=== PATIENT | male | born 1970 | race Caucasian/White ===

== ENCOUNTER 2017-03-10 20:02 | Emergency (ER) | payer MEDICARE ==
[2017-03-10 20:03] VITALS: BMI 27.9
[2017-03-10 20:26] VITALS: BP 138/91; PULSE 81; RESP 16; TEMP 98; O2SAT 99
[2017-03-10] MEDS ORDERED: TDAP Vaccine 0.5 mL Syr IM ONE (21:06)
--- NOTE | 2017-03-10 21:14 | ED PDOC ---
Arrival/HPI - General Historian: Patient - General Chief Complaint: Abnormal Skin Integrity Time Seen by Provider: 03/10/17 20:57 - History of Present Illness Narrative History of Present Illness (Text): 03/10/17 21:00 47 yo M presents to the emergency room for possible skin infection to the right side of his face. Patient states that on February 18 he had a pimple on the right cheek which he popped, he then saw a highway painter helper for it and was diagnosed with a "cystic eruption," which erupt and have a yellow crusty d/c, and was subsequently treated with a steroid injection locally at the site of the pimple on his right cheek. States that he was then prescribed doxycycline which she took for 14 days. However the symptoms persisted and he developed 2 more lesions in the right side of his face therefore he saw another highway painter helper and was diagnosed with possible impetigo and was advised to continue current antibiotic which she was taking at the time of doxycycline. Patient states that he has ordered to complete the full course of doxycycline, he was also called by the second highway painter helper that he saw and was told that a wound culture showed that he has positive staph aureus but no MRSA. Otherwise reports no headache, fever, chills, ear pain, URI symptoms, neck pain, sore throat. Otherwise has no other complaints. (Michael DORAN,Beulah Miranda) Past Medical History - Provider Review Nursing Documentation Reviewed: Yes - Tetanus Immunization Tetanus Immunization: Unknown - Cardiac Hx Cardiac Disorders: Yes - Pulmonary Hx Respiratory Disorders: No - Neurological Hx Neurological Disorder: No - HEENT Hx HEENT Disorder: No - Renal Hx Renal Disorder: No - Endocrine/Metabolic Hx Endocrine Disorders: No - Hematological/Oncological Hx Blood Disorders: No - Integumentary Hx Dermatological Disorder: No - Musculoskeletal/Rheumatological Hx Musculoskeletal Disorders: No Hx Falls: No - Gastrointestinal Hx Gastroesophageal Reflux: Yes Other/Comment: Arrington's esophagus - Genitourinary/Gynecological Hx Genitourinary Disorders: No - Psychiatric Hx Psychophysiologic Disorder: Yes Hx Depression: Yes Hx Substance Use: No - Surgical History Hx Tonsillectomy: Yes - Anesthesia Hx Anesthesia: No - Suicidal Assessment Feels Threatened In Home Enviroment: No Family/Social History - Physician Review Nursing Documentation Reviewed: Yes Family/Social History: No Known Family HX Smoking Status: Former Smoker Hx Alcohol Use: No Hx Substance Use: No Hx Substance Use Treatment: No Allergies/Home Meds Allergies/Adverse Reactions: Allergies unknown anesthesia Allergy (Uncoded 08/06/16 05:53) RASH Home Medications: Home Meds Medication Instructions Recorded Confirmed Alprazolam [Xanax] 0.5 mg PO PRN PRN 03/10/17 03/10/17 Omeprazole 20 mg PO BID 03/10/17 03/10/17 Paroxetine HCl [Paxil] 40 mg PO DAILY 03/10/17 03/10/17 Review of Systems - Review of Systems Constitutional: Normal. absent: Fatigue, Weight Change, Fevers ENT: Normal. absent: Hearing Changes, Sore Throat, Rhinorrhea, Epistaxis, Sinus Congestion Respiratory: Normal. absent: SOB, Cough Cardiovascular: Normal. absent: Chest Pain, Palpitations, Edema Musculoskeletal: Normal. absent: Arthralgias, Back Pain Skin: Normal, Rash, Skin Lesions. absent: Pruritis Physical Exam - Physical Exam Narrative Physical Exam (Text): 03/10/17 21:00 GENERAL APPEARANCE: Patient is awake, alert, oriented x 3, in no acute distress. SKIN: (+) erythematous healed flat irregular lesion ~1cm to the R cheek with no other lesions noted. Otherwise (-) excoriations, (-) drainage, (-) crusting of lesions is present. HENT: (-) conjunctival injection, (-) chemosis. Oropharynx: clear (-) tongue or lip swelling, (-) tonsillar exudates, (-) erythema. Airway: patent (-) stridor, (-) hoarseness. Mucous membranes moist. Nares: Patent (-) rhinorrhea. NECK: (-) lymphadenopathy, (-) tenderness. CARDIOVASCULAR: Normal rate and rhythm. (-) murmur, (-) gallop. CHEST: (-) rales, (-) wheezing, (-) dyspnea, (-) stridor. Breath sounds equal bilaterally. ABDOMEN: Soft. (-) tenderness, (-) distention, (-) HSM. NEURO: Mental status: Patient is alert, oriented, and with normal strength and tone. (Michael DORAN,Beulah Miranda) Vital Signs Temp Pulse Resp BP Pulse Ox 03/10/17 20:25 98 F 81 16 138/91 H 99 Medical Decision Making ED Course and Treatment: 03/10/17 21:00 47-year-old male presents emergency room for possible impetigo to the right side of his face. Plan : - Tdap IM - Bactroban Patient advised on the likely diagnosis of impetigo. Advised to continue Bactroban as prescribed and to follow up with his highway painter helper in 1-2 days without fail. Return to the emergency room at any time for any new or worsening symptoms. Patient states he fully agrees with and understands discharge instructions. States that he agrees with the plan and disposition. Verbalized and repeated discharge instructions and plan. I have given the patient opportunity to ask any additional questions. (Michael DORAN,Beulah Miranda) - Medication Orders Current Medication Orders: Discontinued Medications Mupirocin (Bactroban Ointment) 1 gm TOP STAT STA Stop: 03/10/17 21:07 Last Admin: 03/10/17 22:20 Dose: Tetanus/Reduced Diphtheria/Acell Pertussis (Boostrix Vaccine Inj) 0.5 ml IM .ONCE ONE Stop: 03/10/17 21:07 Last Admin: 03/10/17 22:12 Dose: 0.5 ml [facility] [place] Immunization Data Document 03/10/17 22:12 CHAVEZ (Rec: 03/10/17 22:13 CHAVEZ [id number]) Immunization Data Vaccine Lot Number [id number] - ADRIANO / SAUSAGE TIER / Resident Statement / has reviewed & agrees with the documentation as recorded. Disposition/Present on Arrival - Present on Arrival Any Indicators Present on Arrival: No History of DVT/PE: No History of Uncontrolled Diabetes: No Urinary Catheter: No History of Decub. Ulcer: No History Surgical Site Infection Following: None - Disposition Have Diagnosis and Disposition been Completed?: Yes Disposition Time: 21:00 Patient Plan: Discharge - Disposition Diagnosis: Impetigo Disposition: HOME/ ROUTINE Condition: STABLE Discharge Instructions (ExitCare): Impetigo (ED) Print Language: MOLDOVAN Additional Instructions: Thank you for letting us take care of you today. You were treated for impetigo. The emergency medical care you received today was directed at your acute symptoms. If you were prescribed any medication, please fill it and take as directed. It may take several days for your symptoms to resolve. Return to the Emergency Department if your symptoms worsen, do not improve, or if you have any other problems. Please contact your skin doctor in 2 days for re-evaluation and follow up. Bring any paperwork you were given at discharge with you along with any medications you are taking to your follow up visit. Our treatment cannot replace ongoing medical care by a primary care provider (PCP) outside of the emergency department. Thank you for allowing the [email or web address] team to be part of your care today. Prescriptions: Mupirocin 2% Cream [Bactroban Cream] 30 applic TOP BID #1 tube Forms: [employer] (Dominican), WORK NOTE
== END 2017-03-10 22:21 | disposition home or self-care (01) ==
LOC: ED 20:02
DX: L01.00 Impetigo, unspecified (principal); Z23 Encounter for immunization

== ENCOUNTER 2017-04-28 14:56 | Emergency (ER) | payer MEDICARE ==
[2017-04-28 14:59] VITALS: BMI 27.2
--- NOTE | 2017-04-28 15:18 | ED PDOC ---
Arrival/HPI - General Chief Complaint: Chest Pain Time Seen by Provider: 04/28/17 15:10 Historian: Patient - History of Present Illness Narrative History of Present Illness (Text): 04/28/17 15:21 47 y/o male, pmh including gerd, c/o chest tightness after inhaling the fumes of the bleach and ammonia x 1 hour. Pt. stated that he mixed the bleach and ammonia about half hour ago to mop the floor, coughing and irritated on the airway, here at the ER for the evaluation. Pt. has no night sweat, no palpitation, no rash, no numbness or tingling, no dizziness, no change in vision , no other medical or psychological complaints. Past Medical History - Provider Review Nursing Documentation Reviewed: Yes - Infectious Disease Hx of Infectious Diseases: None - Tetanus Immunization Tetanus Immunization: Unknown - Cardiac Hx Hypertension: Yes - Pulmonary Hx Respiratory Disorders: No - Neurological Hx Neurological Disorder: No - HEENT Hx HEENT Disorder: No - Renal Hx Renal Disorder: No - Endocrine/Metabolic Hx Endocrine Disorders: No - Hematological/Oncological Hx Blood Disorders: No - Integumentary Hx Dermatological Disorder: No - Musculoskeletal/Rheumatological Hx Musculoskeletal Disorders: No Hx Falls: No - Gastrointestinal Hx Gastroesophageal Reflux: Yes Other/Comment: Arrington's esophagus - Genitourinary/Gynecological Hx Genitourinary Disorders: No - Psychiatric Hx Psychophysiologic Disorder: Yes Hx Depression: Yes Hx Substance Use: No - Surgical History Hx Tonsillectomy: Yes - Anesthesia Hx Anesthesia: Yes Hx Anesthesia Reactions: No Hx Malignant Hyperthermia: No - Suicidal Assessment Feels Threatened In Home Enviroment: No Family/Social History - Physician Review Nursing Documentation Reviewed: Yes Family/Social History: Unknown Family HX Smoking Status: Never Smoked Hx Alcohol Use: No Hx Substance Use: No Hx Substance Use Treatment: No Allergies/Home Meds Allergies/Adverse Reactions: Allergies unknown anesthesia Allergy (Uncoded 08/06/16 05:53) RASH Home Medications: Home Meds Medication Instructions Recorded Confirmed Omeprazole 20 mg PO BID 03/10/17 04/28/17 Review of Systems - Review of Systems Constitutional: absent: Fatigue, Fevers Eyes: absent: Vision Changes ENT: absent: Hearing Changes Respiratory: Cough. absent: SOB, Sputum Cardiovascular: Chest Pain Gastrointestinal: absent: Abdominal Pain, Nausea, Vomiting Skin: absent: Rash, Pruritis, Skin Lesions Neurological: absent: Headache, Dizziness, Speech Changes Physical Exam Vital Signs Reviewed: Yes Vital Signs Temp Pulse Resp BP Pulse Ox 04/28/17 16:07 97.9 F 91 H 19 139/92 H 100 04/28/17 15:07 97.7 F 90 18 146/90 98 Temperature: Afebrile Blood Pressure: Normal Pulse: Regular Respiratory Rate: Normal Appearance: Positive for: Well-Appearing, Non-Toxic, Comfortable Pain Distress: None Mental Status: Positive for: Alert and Oriented X 3 - Systems Exam Head: Present: Atraumatic, Normocephalic Pupils: Present: PERRL Extroacular Muscles: Present: EOMI Conjunctiva: Present: Normal Mouth: Present: Moist Mucous Membranes Pharnyx: No: ERYTHEMA, EXUDATE, TONSILS ENLARGED, Uvular Deviation, Muffled/ Hoarse Voice, Strider Nose (External): Present: Atraumatic. No: Abrasion, Contusion, Laceration Nose (Internal): Present: Normal Inspection, No Active Bleeding. No: Rhinorrhea , Septal Hematoma, Epistaxis Neck: Present: Normal Range of Motion, Trachea Midline. No: MIDLINE TENDERNESS , Lymphadenopathy Respiratory/Chest: Present: Clear to Auscultation, Good Air Exchange. No: Respiratory Distress, Accessory Muscle Use, Wheezes, Decreased Breath Sounds, Rales, Retracting, Rhonchi, Tachypneic, Tender to Palpation, Other Cardiovascular: Present: Regular Rate and Rhythm, Normal S1, S2. No: Murmurs Abdomen: Present: Normal Bowel Sounds. No: Tenderness, Distention, Peritoneal Signs, Rebound, Guarding Back: Present: Normal Inspection. No: CVA Tenderness, Midline Tenderness, Paraspinal Tenderness Upper Extremity: Present: Normal Inspection, Capillary Refill < 2s. No: Cyanosis, Edema Lower Extremity: Present: Normal Inspection, Capillary Refill < 2 s. No: Edema Neurological: Present: GCS=15, Speech Normal, Motor Func Grossly Intact, Gait Normal, Memory Normal. No: CN II-XII Intact Skin: Present: Warm, Dry, Normal Color. No: Rashes Psychiatric: Present: Alert, Oriented x 3, Normal Insight, Normal Concentration Medical Decision Making ED Course and Treatment: 04/28/17 15:23 -Ekg/cxr -nasal cannula 4L oxygen for 20 minutes -Observe and reassess 04/28/17 16:18 -EKG: SR @ 86 BPM with PAC, no ST elevation or depression, no T wave inversion. -Pt. received the oxygen over 20 minutes, feeling much better, ekg repeated. 04/28/17 16:26 -EKG: NSR @ 74 BPM, no ST elevation or depression, no T wave inversion, compared with previous ekg. -Asymptomatic, discussed with Dr. Bello and he agreed with the diagnosis/ treatment and discharge plan. -Discharge home with education on avoid mixing cleaning products, stay hydrated , keep the open at home for ventilation for 1-2 hours, return to the ER for any new or worsening signs or symptoms. - RAD Interpretation Radiology Orders: 04/28/17 15:13 CHEST PORTABLE [RAD] Stat HISTORY: medical clearance COMPARISON: Comparison is made to 08/06/2016 FINDINGS: LUNGS: No active pulmonary disease. PLEURA: No significant pleural effusion identified, no pneumothorax apparent. CARDIOVASCULAR: Normal. OSSEOUS STRUCTURES: No significant abnormalities. VISUALIZED UPPER ABDOMEN: Normal. OTHER FINDINGS: None. IMPRESSION: No active disease. Insurance Sales Professional: Radiologist - EKG Interpretation EKG Interpretation (Text): 04/28/17 15:24 -EKG: SR @ 86 BPM with PAC, no ST elevation or depression, no T wave inversion. 04/28/17 16:25 -EKG: NSR @ 74 BPM, no ST elevation or depression, no T wave inversion, compared with previous ekg. Interpreted by ED Physician: Yes Type: 12 lead EKG Comparison: Com.w/previous EKG - PA / INSIDE OUTSIDE SALES REPRESENTATIVE / Resident Statement MD/DO has reviewed & agrees with the documentation as recorded. Disposition/Present on Arrival - Present on Arrival Any Indicators Present on Arrival: No History of DVT/PE: No History of Uncontrolled Diabetes: No Urinary Catheter: No History of Decub. Ulcer: No History Surgical Site Infection Following: None - Disposition Have Diagnosis and Disposition been Completed?: Yes Diagnosis: Exposure to chemical inhalation Disposition: HOME/ ROUTINE Disposition Time: 16:27 Patient Plan: Discharge Condition: IMPROVED Additional Instructions: -Discharge home with education on avoid mixing cleaning products, stay hydrated , keep the open at home for ventilation for 1-2 hours, return to the ER for any new or worsening signs or symptoms. Referrals: Jeff Hrut MD [Primary Care Provider] - Follow up with primary Kemar Prajapati MD [Staff Provider] - Follow up with primary Forms: WORK NOTE
[2017-04-28 16:08] VITALS: BP 139/92; PULSE 91; RESP 19; TEMP 97.9; O2SAT 100
--- NOTE | 2017-04-28 16:53 | RAD ---
HISTORY: medical clearance COMPARISON: Comparison is made to 08/06/2016 FINDINGS: LUNGS: No active pulmonary disease. PLEURA: No significant pleural effusion identified, no pneumothorax apparent. CARDIOVASCULAR: Normal. OSSEOUS STRUCTURES: No significant abnormalities. VISUALIZED UPPER ABDOMEN: Normal. OTHER FINDINGS: None. IMPRESSION: No active disease.
--- NOTE | 2017-04-29 10:13 | CARD ---
APPROVED REPORT EKG Measurement Heart [id number] [place] 160P38 [id number] <Conclusion> Normal sinus rhythm with sinus arrhythmia Normal ECG
--- NOTE | 2017-04-29 17:16 | CARD ---
APPROVED REPORT EKG Measurement Heart [id number] [place] 156P66 [id number] <Conclusion> Sinus rhythm with premature atrial complexes Otherwise normal ECG
== END 2017-04-28 16:51 | disposition home or self-care (01) ==
LOC: ED 14:56
DX: Z77.098 Contact with and (suspected) exposure to other hazardous, chiefly nonmedicinal, chemicals (principal); I10 Essential (primary) hypertension